=== PATIENT | female | born 1985 | race African-American/Black ===

== ENCOUNTER 2019-12-14 11:43 | Emergency (ER) | payer OTHER ==
[~2019-12-14] VITALS: Ht 170.2 cm; Wt 63.5 kg
[2019-12-14 13:28] LABS: ABSOLUTE NEUTROPHILS 5.4 thou/uL (1.4-8.2); BASOPHILS 0.7 % (0.0-2.0); EOSINOPHILS 1.8 % (0.0-3.0); HEMATOCRIT 40.5 % (37.0-47.0); HEMOGLOBIN 14.1 gm/dL (12.0-15.0); MCH 32.8 pg (26.0-34.0); MCHC 34.8 g/dL (28.0-37.0); MCV 94.3 fL (80.0-100.0); MONOCYTES 10.9 % (1.0-8.0); PLATELET COUNT 342 thou/uL (150-400); POLYS 58.6 % (36.0-66.0); RDW 14.8 % (10.5-14.5); WBC 9.2 thou/uL (4.0-11.0)
[2019-12-14 13:42] LABS: URINE BILIRUBIN NEGATIVE (Negative); URINE BLOOD NEGATIVE (Negative); URINE CLARITY CLEAR; URINE COLOR YELLOW; URINE GLUCOSE-RANDOM* NEGATIVE (Negative); URINE KETONES NEGATIVE (Negative); URINE LEUKOCYTES-REFLEX NEGATIVE (Negative); URINE NITRITE-REFLEX NEGATIVE (Negative); URINE PROTEIN (DIPSTICK) 2+ (Negative); URINE SPECIFIC GRAVITY >= 1.030 (1.005-1.035); URINE UROBILINOGEN 0.2 E.U./dl (0.2-1.0)
[2019-12-14 13:48] LABS: ANION GAP 14 mmol/L (7-16); BUN 5 mg/dL (7-18); CALCIUM 8.8 mg/dL (8.5-10.1); CHLORIDE 102 mmol/L (98-107); CO2 23 mmol/L (21-32); CREATININE 0.8 mg/dL (0.6-1.0); GLUCOSE 88 mg/dL (74-106); SODIUM 139 mmol/L (136-145)
[2019-12-14 13:53] LABS: ALBUMIN 3.4 g/dL (3.4-5.0); SALICYLATE 4.2 mg/dL (2.8-20.0); SGOT 26 U/L (15-37); SGPT 26 U/L (30-65); TOTAL BILIRUBIN 0.6 mg/dL (0.2-1.0)
[2019-12-14 13:53] LABS: AMP/METHAMP POSITIVE (Negative); BARBITURATES Negative (Negative); BENZODIAZEPINES Negative (Negative); COCAINE POSITIVE (Negative); METHADONE Negative (Negative); OPIATES Negative (Negative); PCP POSITIVE (Negative)
[2019-12-14 13:54] LABS: HYALINE CASTS 0-3 Few /LPF (None Seen); MUCUS 4-6 Moderate strn/LPF (None Seen); SQUAMOUS 4-10 Moderate /LPF (0-3)
[2019-12-14 13:55] LABS: POTASSIUM 3.2 mmol/L (3.5-5.1)
[2019-12-14 13:55] LABS: WBC CLUMPS Moderate (None Seen)
[2019-12-14 13:56] LABS: CRYSTALS None Seen /LPF (None Seen); URINE RBC 0-2 Rare /HPF (0-2)
[2019-12-15] MEDS ORDERED: TRAZODONE HCL50 MG PO (00:33)
[2019-12-15] MEDS ORDERED: ARIPIPRAZOLE10 MG PO (00:33)
[2019-12-15] MEDS ORDERED: BUSPIRONE HCL10 MG PO (00:33)
[2019-12-15] MEDS ORDERED: SERTRALINE HCL100 MG PO (00:34)
[2019-12-15 07:46] VITALS: BP 97/77
== END 2019-12-15 07:46 | disposition home or self-care (01) ==
LOC: ER 11:43
PROVIDERS: Physician Assistant
DX: F14.159 Cocaine abuse with cocaine-induced psychotic disorder, unspecified (principal); F15.159 Other stimulant abuse with stimulant-induced psychotic disorder, unspecified; F10.10 Alcohol abuse, uncomplicated; F19.90 Other psychoactive substance use, unspecified, uncomplicated; F31.9 Bipolar disorder, unspecified; F20.9 Schizophrenia, unspecified; Z79.899 Other long term (current) drug therapy; Y90.0 Blood alcohol level of less than 20 mg/100 ml

== ENCOUNTER 2020-01-15 03:00 | Emergency (ER) | payer OTHER ==
[~2020-01-15] VITALS: Ht 172.7 cm; Wt 56.7 kg
[~2020-01-15 03:00] MED LIST: ARIPIPRAZOLE10 MG PO; BUSPIRONE HCL10 MG PO; SERTRALINE HCL100 MG PO; TRAZODONE HCL50 MG PO
[2020-01-15 10:50] VITALS: BP 126/89
== END 2020-01-15 10:55 | disposition still patient (30) ==
LOC: ER 03:00
DX: S93.602A Unspecified sprain of left foot, initial encounter (principal); S93.601A Unspecified sprain of right foot, initial encounter; J02.9 Acute pharyngitis, unspecified; F10.129 Alcohol abuse with intoxication, unspecified; Z79.899 Other long term (current) drug therapy; Z59.0 Homelessness; X58.XXXA Exposure to other specified factors, initial encounter; Y93.89 Activity, other specified; Y92.89 Other specified places as the place of occurrence of the external cause; Y99.8 Other external cause status; Y90.9 Presence of alcohol in blood, level not specified